=== PATIENT | female | born 1960 | race Caucasian/White ===

== ENCOUNTER → 2024-04-07 | Outpatient (CLI) | payer MEDICARE, MEDICAID, SELFPAY ==
--- NOTE | 2024-04-07 12:18 | XR_ITS ---
Examination: Knee, right , 3 views Technique: Knee AP, lateral, oblique 3 views Date and time of exam: April 07, 2024 1233 hours INDICATIONS: Right knee pain beginning last year FINDINGS: Moderate narrowing medial joint space No fracture or dislocation Moderate osteopenia IMPRESSION: Moderate narrowing medial joint space
[2024-04-07 13:09] LABS: Basophils % (Auto) 1 % (0-2.5); Eosinophils # (Auto) 0.2 Thou/mm3 (0.0-0.5); Eosinophils % (Auto) 4 % (0-10); Hematocrit 33.2 % (36.0-46.0); Hemoglobin 11.5 g/dL (12.0-16.0); Immature Granulocytes % (Auto) 0 % (0-0); Lymphocytes # (Auto) 1.8 Thou/mm3 (1.0-4.8); Lymphocytes % (Auto) 49 % (10-50); Mean Corpuscular HGB Conc 34.6 g/dl (31.0-37.0); Mean Corpuscular Volume 93 fL (80-100); Monocytes # (Auto) 0.3 Thou/mm3 (0.0-0.8); Monocytes % (Auto) 8 % (0-12); Neutrophils # (Auto) 1.4 Thou/mm3 (1.8-7.7); Neutrophils % (Auto) 39 % (37-80); Nucleated Red Blood Cell % 0 /100 WBC (0); Platelet Count 239 Thou/mm3 (140-440); RDW Standard Deviation 41.9 fL (36.4-46.3); Red Blood Count 3.59 Miln/mm3 (4.00-5.20); White Blood Count 3.7 Thou/mm3 (3.6-11.0)
[2024-04-07 13:31] LABS: Alanine Aminotransferase 15 U/L (10-49); Albumin, Serum 4.4 gm/dL (3.4-4.8); Albumin/Globulin Ratio 2.4 (1.2-2.2); Alkaline Phosphatase 32 U/L (46-116); Anion Gap 6 (7-16); Aspartate Amino Transferase 21 U/L (0-34); BUN/Creatinine Ratio 18 Ratio (12-20); Bilirubin,Total 0.4 mg/dL (0.3-1.2); Blood Urea Nitrogen 14 mg/dL (9-23); Calcium 9.5 mg/dL (8.3-10.6); Calcium (Corrected) 9.5 mg/dL (8.5-10.1); Carbon Dioxide 25.9 mMol/L (20.0-31.0); Cardiac Risk Estimate 3.7 RATIO (3.7-5.6); Chloride 112 mMol/L (98-107); Cholesterol 238 mg/dL (132-200); Creatinine (Component) 0.8 mg/dL (0.6-1.3); Globulin 1.8 gm/dL (2.3-3.5); Glucose 102 mg/dL (74-106); HDL Cholesterol 64 mg/dL (40-60); LDL Cholesterol,Calculated 153 mg/dL (0-130); Osmolality,Calculated 287 (275-295); Potassium 4.4 mMol/L (3.4-5.1); Sodium 144 mMol/L (136-145); Total Protein 6.2 gm/dL (5.7-8.2); Triglycerides 107 mg/dL (30-150); eGFR > 60 See Note
[2024-04-07 14:12] LABS: Collection Type, Urine Clean Catch
[2024-04-07 14:39] LABS: Amorphous Crystals,Urine Present (Absent); Bilirubin,Urine Negative (Negative); Blood,Urine 1+ (Negative); Clarity,Urine Turbid (Clear/Hazy); Color,Urine Lt-Yellow (Lt Yel-Yel); Glucose, Urine Negative (Negative); Ketones,Urine Negative (Negative); Leukocyte Esterase,Urine Negative (Negative); Nitrite,Urine Negative (Negative); Protein,Urine Negative (Neg - Trace); RBC,Urine 86 /hpf (0-3); Specific Gravity,Urine 1.015 (1.001-1.035); Squamous Epithelial Cell,Urine 1 /hpf (0-5); Urobilinogen,Urine Negative mg/dL (0.0-1.0); WBC,Urine 2 /hpf (0-5)
[2024-04-07 14:44] LABS: Creatinine MALB Rnd Ur 61 mg/dL (30-125); Microalbumin, Random Urine < 3 mg/L (0-300)
== END | disposition home or self-care (01) ==
LOC: CDIM 12:17 → COPL 12:43
PROVIDERS: PCP Nurse Practitioner Family; Referring Provider Nurse Practitioner Family; Visit Provider Radiology Diagnostic Radiology
DX: M25.861 Other specified joint disorders, right knee (principal); I10 Essential (primary) hypertension; E78.2 Mixed hyperlipidemia; F33.9 Major depressive disorder, recurrent, unspecified; Z79.899 Other long term (current) drug therapy
CPT/HCPCS: 36415; 73562; 80053; 80061; 81001; 82043; 82306; 82570; 83036; 85025

== ENCOUNTER 2024-07-07 18:51 | Emergency (ER) | payer MEDICARE, MEDICAID, SELFPAY ==
[2024-07-07 18:55] VITALS: BP 120/76; PULSE 82; RESP 16; TEMP 36.9; O2SAT 96
[2024-07-07 18:57] VITALS: BMI 23.4
[2024-07-07 19:25] VITALS: PULSE 84; O2SAT 98
--- NOTE | 2024-07-07 19:43 | XR_ITS ---
Examination: CT brain head without contrast. 2-D sagittal coronal reconstructions Date and time of exam:July 07, 2024 1946 hours Comparison 11/01/2020 INDICATIONS: Seizure today with headaches CTDI: vol (mGy):46.5 DLP: (mGycm):914 Technique: Multiple CT axial sections of the brain have been obtained, 5 mm slice thickness. Contrast has not been administered. 2-D sagittal, coronal reconstructions have been obtained Low dose protocols were performed. One or more of the following dose reduction techniques were used; automated exposure control, adjustment of the mA and/or KV according to patient size, use of iterative reconstruction technique. Findings: No significant ventricular enlargement. Intra-axial or extra-axial hemorrhage density is not seen. No mass effect or midline shift Basal cisterns are not remarkable. Fourth ventricle is midline. Cranial vault intact. Impression: Negative for acute hemorrhage, mass effect or midline shift As clinically warranted, consider MRI brain follow-up, pre and postcontrast, seizure protocol
--- NOTE | 2024-07-07 19:43 | XR_ITS ---
Examination: PA chest single view 1 upright PA chest single view Date and time: July 07, 20242102 hours Comparison April 09, 2023 INDICATIONS: Seizure today. FINDINGS: Normal heart size. No aspiration pneumonia The osseous structures are intact with old right-sided rib fractures IMPRESSION: No aspiration pneumonia
--- NOTE | 2024-07-07 19:43 | EKG_ITS ---
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
--- NOTE | 2024-07-07 19:44 | PD.EDSEIZ ---
ED Seizures RME/HPI General Chief Complaint: General Adult/Misc Complain Stated Complaint: DIZZINESS AND WEAKNESS Time Seen by Provider: 07/07/24 19:42 Arrival date/time: 07/07/24 18:51 63F with history of seizures, psych, hyperthyroidism, and asthma presents to ED with evaluation after unwitnessed seizure lasting unknown amount of time today. Patient has been taking her meds. Patient feels almost back to baseline, but does have a headache and some generalized weakness/dizziness. Limitations: no limitations Related Data Home Medications ?Medication ?Instructions ?Recorded ?Confirmed albuterol sulfate 90 mcg/actuation 2 puffs IH Q4H PRN sob #1 inh 05/06/07 11/01/20 aerosol inhaler (Ventolin HFA) carbamazepine 300 mg 300 mg PO BID ##0 04/03/12 11/01/20 capsule,extended release [id number] (Carbatrol) zonisamide 100 mg capsule 200 mg PO HS #0 caps 10/28/13 11/01/20 alendronate 70 mg tablet 70 mg PO QWEEK 08/13/17 11/01/20 atorvastatin 40 mg tablet 40 mg PO HS 11/01/20 11/01/20 buspirone 10 mg tablet 10 mg PO QDAY 11/01/20 11/01/20 omeprazole 40 mg capsule,delayed 40 mg PO AC 11/01/20 11/01/20 release quetiapine 200 mg tablet 200 mg PO QDAY 11/01/20 11/01/20 Previous Rx's ?Medication ?Instructions ?Recorded budesonide 180 mcg/actuation 2 inh inhalation BID #1 ea 07/22/21 breath activated powder inhaler dexamethasone 6 mg tablet 6 mg PO QDAY #7 tabs 07/22/21 montelukast 10 mg tablet 10 mg PO QDAY #30 tabs 07/22/21 ibuprofen 600 mg tablet 600 mg PO Q6H #30 tabs 05/05/23 Allergies Allergy/AdvReac Type Severity Reaction Status Date / Time codeine Allergy Severe Swelling Verified 05/05/23 15:44 of Lip/Tongue/Throat Review of Systems Review of Systems Systems Reviewed: All systems reviewed, normal except as documented Constitutional Constitutional: Reports system reviewed and no additional complaints, except as documented, Reports as per HPI, Denies fever(s), Reports headache(s) and Reports weakness ENT Ears, Nose, Mouth, and Throat: Denies disequilibrium, Reports dizziness and Reports headache(s) Cardiovascular Cardiovascular: Reports system reviewed and no additional complaints, except as documented, Denies chest pain and Denies dyspnea Respiratory Respiratory: Reports system reviewed and no additional complaints, except as documented, Denies cough and Denies dyspnea Gastrointestinal Gastrointestinal: Reports system reviewed and no additional complaints, except as documented, Denies abdominal pain, Denies nausea and Denies vomiting Neurologic Neurologic: Reports system reviewed and no additional complaints, except as documented, Reports as per HPI, Denies confusion, Denies disequilibrium, Reports dizziness, Reports headache(s), Reports seizure-like activity and Reports weakness Psychiatric Psychiatric: Denies confusion Past Medical History Past Medical History NEUROLOGIC: Positive Neurological Disorders, Seizures and Head Trauma CARDIAC: Positive Cardiac Disorders and Heart Murmur; Negative Congestive Heart Failure RESPIRATORY: Positive Asthma; Negative Chronic Obstructive Pulmonary Disease (COPD) GASTROINTESTINAL: Positive Gastrointestinal Disorders, Hiatal Hernia and Gastroesophageal Reflux Disease GENITOURINARY: Positive Genitourinary Disorders and Kidney Stones; Negative Renal Disease MUSCULOSKELETAL: Positive Musculoskeletal Disorders and Osteoporosis ENT: Positive Cataracts, Deafness and Head Trauma ENDOCRINE: Positive Endocrine Disorders and Hyperthyroidism; Negative Diabetes Mellitus Type 1 or Diabetes Mellitus Type 2 HEMATOLOGIC: Negative Blood Disorders or Sickle Cell Disease PSYCHO/SOCIAL: Positive Anxiety OTHER HISTORY: Positive Falls, Chicken Pox, Measles, Mumps and Cancer; Negative Autoimmune Disease, Blood Transfusions or Anesthesia Reactions Family History FAMILY HISTORY: Positive Family Respiratory Disorders, Family Cardiac Disorders, Family Gastrointestinal Problems and Family Cancer; Negative Family Psychiatric Problems, Family Surgery or Family Anesthesia Reaction Surgical History SURGICAL: Positive Abdominal Surgery and Hysterectomy Social History SMOKING STATUS: Never smoker ED Exam General Limitations: Present no limitations General appearance: Present alert and in no apparent distress Head Head exam: Present atraumatic Eye Eye exam: Present normal appearance, PERRL and EOMI ENT ENT exam: Present normal exam, normal oropharynx and mucous membranes moist Neck Neck exam: Present normal inspection, full ROM and trachea midline Chest Chest inspection: Present normal inspection and symmetric chest wall rise Respiratory Respiratory exam: Present normal lung sounds bilaterally Cardiovascular Cardiovascular exam: Present regular rate, normal rhythm and normal heart sounds Abdominal Exam Abdominal exam: Present soft and normal bowel sounds Extremities Exam Extremities exam: Present normal inspection and full ROM Back Exam Back exam: Present normal inspection and full ROM Neurological Exam Neurological exam: Present alert, oriented X3 and CN II-XII intact Psychiatric Psychiatric exam: Present normal affect and normal mood Skin Skin exam: Present warm, dry, intact and normal color Course Quality Measures none Orders Category Date Time Status EKG (ED ONLY) *Do not use* NOW Care 07/07/24 19:[address] head/brain wo con Stat Exams 07/07/24 19:43 Completed EKG (ED Only) Stat Exams 07/07/24 19:43 Draft XR chest 1V portable Stat Exams 07/07/24 19:43 Completed CBC Stat Lab 07/07/24 20:13 Completed Comprehensive Metabolic Panel Stat Lab 07/07/24 20:13 Completed Drug Screen,Urine Stat Lab 07/07/24 20:36 Completed Free T4 (Free Thyroxine) Stat Lab 07/07/24 20:13 Completed Lactate (Lactic Acid) Stat Lab 07/07/24 20:13 Completed Magnesium Stat Lab 07/07/24 20:13 Completed TSH [Thyroid Stimulating Hormone] Stat Lab 07/07/24 20:13 Completed Troponin I Stat Lab 07/07/24 20:13 Completed Urinalysis Stat Lab 07/07/24 20:36 Completed Vital Signs Vital signs: Vital Signs Temperature 98.5 F 07/07/24 18:55 Pulse Rate 82 07/07/24 18:55 Respiratory Rate 16 07/07/24 18:55 Blood Pressure 120/76 07/07/24 18:55 Pulse Oximetry (%) 96 07/07/24 18:55 O2 at 96% on RA and WNLs Seizure MDM Narrative MDM Narrative:: 63F with history of seizures, psych, hyperthyroidism, and asthma presents to ED with evaluation after unwitnessed seizure lasting unknown amount of time today. Patient has been taking her meds. Patient feels almost back to baseline, but does have a headache and some generalized weakness/dizziness. Physical exam reveals normal pupil response and EOM. CNII-XII grossly intact. Normal WOB. Gait normal. Neck ROM intact. Patient is afebrile, calm, and alert. CT unremarkable. CXR normal. No leukocytosis. CMP unremarkable. Alcohol/tox screen neg. Lactate normal. EKG is NSR. Trop normal. UA clean. TSH/T4 mildly abnormal. Patient data External records reviewed:: [facility] previous records Clinical information provided by:: patient Social determinants that could affect healthcare access:: mental health Patient has the following chronic illnesses:: seizures, psych, hyperthyroidism, and asthma How is presenting disease/condition affected by chronic disease/condition?: exacerbated by Evaluation data The following diagnostics were reviewed and interpreted by me:: lab results, radiology exam(s) and EKG tracing(s) Lab and/or radiology exams considered but not ordered:: ordered Interpretation Summary: above Medications / Prescriptions Medications or Prescriptions considered but not ordered:: not ordered Medication administrations:: n/a Consultations Consultation(s) initiated? (list below): No Diagnosis Seizure Differential Diagnosis: intractable seizure disorder, febrile convulsion, focal seizure, generalized seizure, new onset seizure, epileptic seizure and status epilepticus Most likely diagnosis given after review of the tests above:: seizure Admission Indicated Admission indicated?: not indicated Admission Request Was there a request for admission?: No Disposition Plan Disposition Plan: Discharge Discharge Attestation Discharge Attestation: The patient and all family members were given an opportunity to ask questions and understood the discharge instructions. Discharge instructions specifically effects, indications for sooner follow up or return to the emergency department, and the expected course of current diagnosis. Patient condition: Stable Discharge Plan Plan Patient Disposition: HOME (Self Care) Discharge Disposition comment: Stable Prescriptions/Referrals Prescriptions/Med Rec: No Action albuterol sulfate [Ventolin HFA] 200 PUFF/INH HFA aerosol inhaler 2 puffs IH Q4H PRN (Reason: sob) Qty: 1 Patient Comments: as needed. carbamazepine [Carbatrol] 300 MG capsule, ER multiphase 12 hr 300 mg PO BID Qty: 0 zonisamide 100 MG capsule 200 mg PO HS Qty: 0 alendronate 70 mg Tablet 70 mg PO QWEEK Patient Comments: pt takes on saturdays atorvastatin 40 mg tablet 40 mg PO HS Patient Comments: TAKE ONE TABLET BY MOUTH EVERY DAY FOR CHOLESTEROL quetiapine 200 mg tablet 200 mg PO QDAY Patient Comments: TAKE 1 TABLET BY MOUTH EVERY DAY buspirone 10 mg tablet 10 mg PO QDAY Patient Comments: TAKE 1 TABLET BY MOUTH THREE TIMES A DAY omeprazole 40 mg capsule,delayed release(DR/EC) 40 mg PO AC Patient Comments: TAKE 1 CAPSULE BY MOUTH EVERY DAY BEFORE A MEAL budesonide 180 mcg/actuation aerosol powdr breath activated 2 inh inhalation BID Qty: 1 0RF montelukast 10 mg tablet 10 mg PO QDAY Qty: 30 0RF dexamethasone 6 mg tablet 6 mg PO QDAY Qty: 7 0RF ibuprofen 600 mg tablet 600 mg PO Q6H Qty: 30 0RF Referrals: No Primary/Family,Physician [Primary Care Provider] - In 1 week Problem List Clinical Impression: Seizure Patient/Caregiver Discharge Instructions Education Materials: ED Seizure, Recurrent (Adult) Additional Instructions: Please follow-up with PCP within 24-48 hours and return immediately if symptoms worsen. Print Language: Czech Stand Alone Forms: Patient Portal Info Letter PA/DIRECTOR OF VOCATIONAL TRAINING Supervising Physician PA/JORGE A Supervising Physician: Dr. Paez
[2024-07-07 20:26] LABS: Lactate (Lactic Acid) 1.5 mMol/L (0.4-2.0)
[2024-07-07 20:29] LABS: Basophils % (Auto) 0 % (0-2.5); Eosinophils # (Auto) 0.2 Thou/mm3 (0.0-0.5); Eosinophils % (Auto) 3 % (0-10); Hematocrit 34.9 % (36.0-46.0); Hemoglobin 12.2 g/dL (12.0-16.0); Immature Granulocytes % (Auto) 0 % (0-0); Immature Granulocytes Auto 0.01 Thou/mm3 (0.00-0.00); Lymphocytes % (Auto) 41 % (10-50); Mean Corpuscular Hemoglobin 32.7 pg (25.0-35.0); Mean Corpuscular Volume 94 fL (80-100); Monocytes # (Auto) 0.4 Thou/mm3 (0.0-0.8); Monocytes % (Auto) 7 % (0-12); Neutrophils # (Auto) 2.3 Thou/mm3 (1.8-7.7); Neutrophils % (Auto) 48 % (37-80); Nucleated Red Blood Cell % 0 /100 WBC (0); Platelet Count 247 Thou/mm3 (140-440); RDW Standard Deviation 42.1 fL (36.4-46.3); Red Blood Count 3.73 Miln/mm3 (4.00-5.20); White Blood Count 4.8 Thou/mm3 (3.6-11.0)
[2024-07-07 20:44] LABS: Collection Type, Urine Clean Catch; RBC,Urine 0 /hpf (0-3)
[2024-07-07 20:51] LABS: Alanine Aminotransferase 18 U/L (10-49); Albumin, Serum 4.8 gm/dL (3.4-4.8); Albumin/Globulin Ratio 2.1 (1.2-2.2); Alkaline Phosphatase 33 U/L (46-116); Anion Gap 7 (7-16); Aspartate Amino Transferase 23 U/L (0-34); BUN/Creatinine Ratio 16 Ratio (12-20); Bilirubin,Total 0.2 mg/dL (0.3-1.2); Blood Urea Nitrogen 13 mg/dL (9-23); Calcium 9.3 mg/dL (8.3-10.6); Calcium (Corrected) 9.3 mg/dL (8.5-10.1); Carbon Dioxide 26.5 mMol/L (20.0-31.0); Chloride 109 mMol/L (98-107); Creatinine (Component) 0.8 mg/dL (0.6-1.3); Estimated Creatinine Clearance 52.4 mL/min (>60); Globulin 2.3 gm/dL (2.3-3.5); Glucose 108 mg/dL (74-106); Osmolality,Calculated 284 (275-295); Potassium 4.2 mMol/L (3.4-5.1); Sodium 142 mMol/L (136-145); Thyroid Stimulating Hormone 6.65 uIU/mL (0.55-4.78); Total Protein 7.1 gm/dL (5.7-8.2); Troponin I < 0.002 ng/mL (0.0-0.045); eGFR > 60 See Note
[2024-07-07 21:01] LABS: Bacteria,Urine Rare; Bilirubin,Urine Negative (Negative); Blood,Urine Negative (Negative); Clarity,Urine Clear (Clear/Hazy); Color,Urine Lt-Yellow (Lt Yel-Yel); Glucose, Urine Negative (Negative); Ketones,Urine Negative (Negative); Leukocyte Esterase,Urine Positive (Negative); Nitrite,Urine Negative (Negative); Protein,Urine Negative (Neg - Trace); Specific Gravity,Urine 1.014 (1.001-1.035); Squamous Epithelial Cell,Urine < 1 /hpf (0-5); Urobilinogen,Urine Negative mg/dL (0.0-1.0); WBC,Urine 5 /hpf (0-5)
[2024-07-07 21:05] LABS: Amphetamine/Methamp Scrn,U Negative (Negative); Barbiturate Screen,Urine Negative (Negative); Benzodiazepines Screen,Urine Negative (Negative); Benzoylecgonine Screen, Ur Negative (Negative); Fentanyl Screen,Urine Negative (Negative); Opiate Screen,Urine Negative (Negative); THC Screen,Urine Negative (Negative)
[2024-07-07 21:37] VITALS: RESP 18
== END 2024-07-07 21:38 | disposition home or self-care (01) ==
PROVIDERS: Physician Assistant; Emergency Provider Emergency Medicine
DX: R56.9 Unspecified convulsions (principal); J45.909 Unspecified asthma, uncomplicated; E05.90 Thyrotoxicosis, unspecified without thyrotoxic crisis or storm; R51.9 Headache, unspecified
CPT/HCPCS: 36415; 70450; 71045; 80053; 80307; 81001; 83605; 83735; 84439; 84443; 84484; 85025; 93005; 99284

== ENCOUNTER 2024-09-16 15:20 | Emergency (ER) | payer MEDICARE, SELFPAY ==
--- NOTE | 2024-09-16 15:24 | PD.EDSOB ---
ED SOB =RME/HPI General Chief Complaint: Shortness of Breath/Dyspnea Stated Complaint: SOB Time Seen by Provider: 09/16/24 15:23 Arrival date/time: 09/16/24 15:20 Limitations: no limitations RME / HPI RME / HPI Narrative: DR. SMART MAIN ED EVALUATION: 64-year-old female with past medical history of asthma, heart murmur, seizure disorder, and anxiety presents to the Emergency Department BIBA with complaint of shortness of breath. Patient received 2 Albuterol treatments en route by EMS. Reports tightness in chest when breathing and associated cough. No hypoxia, oxygen saturation is 98% on room air. Denies smoking, alcohol, or drug use. No recent travel. Related Data Home Medications ?Medication ?Instructions ?Recorded ?Confirmed albuterol sulfate 90 mcg/actuation 2 puffs IH Q4H PRN sob #1 inh 05/06/07 11/01/20 aerosol inhaler (Ventolin HFA) carbamazepine 300 mg 300 mg PO BID ##0 04/03/12 11/01/20 capsule,extended release [id number] (Carbatrol) zonisamide 100 mg capsule 200 mg PO HS #0 caps 10/28/13 11/01/20 alendronate 70 mg tablet 70 mg PO QWEEK 08/13/17 11/01/20 atorvastatin 40 mg tablet 40 mg PO HS 11/01/20 11/01/20 buspirone 10 mg tablet 10 mg PO QDAY 11/01/20 11/01/20 omeprazole 40 mg capsule,delayed 40 mg PO AC 11/01/20 11/01/20 release quetiapine 200 mg tablet 200 mg PO QDAY 11/01/20 11/01/20 Previous Rx's ?Medication ?Instructions ?Recorded budesonide 180 mcg/actuation 2 inh inhalation BID #1 ea 07/22/21 breath activated powder inhaler dexamethasone 6 mg tablet 6 mg PO QDAY #7 tabs 07/22/21 montelukast 10 mg tablet 10 mg PO QDAY #30 tabs 07/22/21 ibuprofen 600 mg tablet 600 mg PO Q6H #30 tabs 05/05/23 Allergies Allergy/AdvReac Type Severity Reaction Status Date / Time codeine Allergy Severe Swelling Verified 05/05/23 15:44 of Lip/Tongue/Throat Review of Systems Review of Systems Systems Reviewed: All systems reviewed, normal except as documented Past Medical History Past Medical History NEUROLOGIC: Positive Neurological Disorders, Seizures and Head Trauma CARDIAC: Positive Cardiac Disorders and Heart Murmur RESPIRATORY: Positive Asthma; Negative Chronic Obstructive Pulmonary Disease (COPD) GASTROINTESTINAL: Positive Gastrointestinal Disorders, Hiatal Hernia and Gastroesophageal Reflux Disease GENITOURINARY: Positive Genitourinary Disorders and Kidney Stones MUSCULOSKELETAL: Positive Musculoskeletal Disorders and Osteoporosis ENT: Positive Cataracts, Deafness and Head Trauma ENDOCRINE: Positive Endocrine Disorders and Hyperthyroidism PSYCHO/SOCIAL: Positive Anxiety OTHER HISTORY: Positive Falls, Chicken Pox, Measles, Mumps and Cancer Family History FAMILY HISTORY: Positive Family Respiratory Disorders, Family Cardiac Disorders, Family Gastrointestinal Problems and Family Cancer Surgical History SURGICAL: Positive Abdominal Surgery and Hysterectomy Social History SMOKING STATUS: Never smoker SUBSTANCE USE: does not use ALCOHOL: Never ED Exam General Limitations: Present no limitations General appearance: Present alert Head Head exam: Present atraumatic, normocephalic and normal inspection Eye Eye exam: Present normal appearance, PERRL and EOMI ENT ENT exam: Present normal exam, normal oropharynx and mucous membranes moist Neck Neck exam: Present normal inspection, full ROM and trachea midline Chest Chest inspection: Present normal inspection and symmetric chest wall rise Respiratory Respiratory exam: Present respiratory distress and other (labored, tachypnea, diminished breath sounds; no rhonchi); Absent wheezes Cardiovascular Cardiovascular exam: Present regular rate, normal rhythm and normal heart sounds Abdominal Exam Abdominal exam: Present soft and normal bowel sounds Extremities Exam Extremities exam: Present normal inspection and full ROM Back Exam Back exam: Present normal inspection and full ROM Neurological Exam Neurological exam: Present alert, oriented X3 and CN II-XII intact Psychiatric Psychiatric exam: Present normal affect and normal mood Skin Skin exam: Present warm, dry, intact and normal color Course Quality Measures none Orders Category Date Time Status EKG (ED ONLY) *Do not use* NOW Care 09/16/24 15:26 Completed CXR1 [XR chest 1V] Stat Exams 09/16/24 17:48 Ordered EKG (ED Only) Stat Exams 09/16/24 15:26 Draft EKG (ED Only) Urgent Exams 09/16/24 15:26 Ordered BNP [B-Type Natriuretic Peptide] Stat Lab 09/16/24 17:48 Ordered CBC Stat Lab 09/16/24 17:48 Ordered CMP [Comprehensive Metabolic Panel] Stat Lab 09/16/24 17:48 Ordered Troponin I Stat Lab 09/16/24 17:48 Ordered Levothyroxine Sodium [Synthroid] Med 09/16/24 17:50 Discontinued 25 mcg PO X1 ONE MethylPREDNISolone.* [SoluMEDROL Inj] Med 09/16/24 17:49 Discontinued 125 mg IVP X1 ONE cefTRIAXone/D5w 1gm IV premix [Rocephin/D5w 1gm IV Med 09/16/24 17:52 Discontinued premix] 1 gm in 50 ml IV NOW Vital Signs Vital signs: Vital Signs Temperature 98.2 F 09/16/24 15:30 Pulse Rate 101 H 09/16/24 15:30 Respiratory Rate 19 09/16/24 15:30 Blood Pressure 106/92 H 09/16/24 15:30 Pulse Oximetry (%) 100 09/16/24 15:30 Oxygen Delivery Method Oxy Mask 09/16/24 15:30 Oxygen Flow Rate 6 09/16/24 15:30 Shortness of Breath / Dyspnea MDM Narrative MDM Narrative:: IRose am scribing for and in the presence of Dr. Smart. Patient is a 64-year-old female with medical history notable for asthma that is in Emergency Department concerns for shortness of breath. Vital signs and exam as above. Concern for asthma exacerbation, ACS, CHF exacerbation pneumonia among others. Ordered labs EKG chest x-ray also ordered breathing treatment and steroids. EKG without evidence of arrhythmia or ischemia. At this time a shift is in a transition care over to the oncoming provider. Patient is pending results of her workup and safe dispo. Patient data External records reviewed:: [facility] previous records and EMS form Clinical information provided by:: patient and EMS Social determinants that could affect healthcare access:: none Patient has the following chronic illnesses:: asthma, heart murmur, seizure disorder, and anxiety How is presenting disease/condition affected by chronic disease/condition?: caused by Evaluation data The following diagnostics were reviewed and interpreted by me:: lab results Lab and/or radiology exams considered but not ordered:: none Interpretation Summary: My interpretation: EKG performed at 1526 hours, sinus rhythm, rate 101, frequent PVCs, non specific ST-T wave changes, no cardiac alert Medications / Prescriptions Medications or Prescriptions considered but not ordered:: none Medication administrations:: Medication Administration History Discontinued Medications Ceftriaxone Sodium/Dextrose (Rocephin/D5w 1gm Iv Premix) 1 gm in 50 mls @ 100 mls/hr IV NOW ONE Stop: 09/16/24 18:21 Levothyroxine Sodium (Levothyroxine Sodium 25 Mcg Tablet) 25 mcg PO X1 ONE Stop: 09/16/24 17:51 Methylprednisolone Sodium Succinate (Methylprednisolone Sod Succ 62.5 Mg/Ml 2ml Vial) 125 mg IVP X1 ONE Stop: 09/16/24 17:50 see above if any Consultations Consultation(s) initiated? (list below): No Diagnosis Shortness of Breath Differential Diagnosis: other (asthma exacerbation, bronchitis, and anxiety-induced hyperventilation) Most likely diagnosis given after review of the tests above:: Reactive airway disease Admission Indicated Admission indicated?: not indicated Explain why admission is indicated or not indicated:: Patient will be signed out Admission Request Was there a request for admission?: No Admission Attestation Admission request attestation: Signed out Disposition Plan Disposition Plan: other (specify) (Signed out) Discharge Plan Prescriptions/Referrals Prescriptions/Med Rec: No Action albuterol sulfate [Ventolin HFA] 200 PUFF/INH HFA aerosol inhaler 2 puffs IH Q4H PRN (Reason: sob) Qty: 1 Patient Comments: as needed. carbamazepine [Carbatrol] 300 MG capsule, ER multiphase 12 hr 300 mg PO BID Qty: 0 zonisamide 100 MG capsule 200 mg PO HS Qty: 0 alendronate 70 mg Tablet 70 mg PO QWEEK Patient Comments: pt takes on saturdays atorvastatin 40 mg tablet 40 mg PO HS Patient Comments: TAKE ONE TABLET BY MOUTH EVERY DAY FOR CHOLESTEROL quetiapine 200 mg tablet 200 mg PO QDAY Patient Comments: TAKE 1 TABLET BY MOUTH EVERY DAY buspirone 10 mg tablet 10 mg PO QDAY Patient Comments: TAKE 1 TABLET BY MOUTH THREE TIMES A DAY omeprazole 40 mg capsule,delayed release(DR/EC) 40 mg PO AC Patient Comments: TAKE 1 CAPSULE BY MOUTH EVERY DAY BEFORE A MEAL budesonide 180 mcg/actuation aerosol powdr breath activated 2 inh inhalation BID Qty: 1 0RF montelukast 10 mg tablet 10 mg PO QDAY Qty: 30 0RF dexamethasone 6 mg tablet 6 mg PO QDAY Qty: 7 0RF ibuprofen 600 mg tablet 600 mg PO Q6H Qty: 30 0RF Problem List Clinical Impression: Shortness of breath Patient/Caregiver Discharge Instructions Print Language: Setswana
--- NOTE | 2024-09-16 15:26 | EKG_ITS ---
[facility] Test Date: 2024-09-16 Pat Name: PURNIMA SPRINGER Department: Room: - Gender: Female Wood Handler: : 1960 Requested By: Sonja Dale Order Number: [id number] Reading MD: Sonja Dale Measurements Intervals [place] Rate: 101 P: 55 [place]: 164 QRS: -4 QRSD: 94 T: 12 QT: 356 QTc: 463 Interpretive Statements SINUS TACHYCARDIA WITH FREQUENT VENTRICULAR PREMATURE COMPLEXES LOW QRS VOLTAGE IN PRECORDIAL LEADS [QRS DEFLECTION < 1.0 mV IN CHEST LEADS] ABNORMAL RHYTHM ECG Compared to ECG 07/07/2024 19:45:04 Ventricular premature complex(es) now present Sinus rhythm no longer present Sinus arrhythmia no longer present Myocardial infarct finding no longer present /store/S0/[id number]/[id number]
[2024-09-16 15:28] VITALS: PULSE 100; RESP 19; O2SAT 98; BMI 23.2
[2024-09-16 15:30] VITALS: BP 106/92; PULSE 101; RESP 19; TEMP 36.8; O2SAT 100
[2024-09-16 17:21] VITALS: BP 116/79; PULSE 94; RESP 15; TEMP 36.9; O2SAT 95
--- NOTE | 2024-09-16 17:48 | XR_ITS ---
Examination: AP chest single view Technique one AP portable upright chest single view Date and time: September 16, 2024, 1757 hours COMPARISON: July 07, 2024 INDICATIONS: Shortness of breath chest pain today. FINDINGS: Normal heart size. Lungs are clear. Prominent osteopenia with moderate thoracic dextroscoliosis IMPRESSION: No active disease
[2024-09-16 17:50] VITALS: BP 117/84; PULSE 93; RESP 18; TEMP 36.8; O2SAT 97
[2024-09-16 18:13] LABS: Basophils # (Auto) 0.0 Thou/mm3 (0.0-0.2); Basophils % (Auto) 1 % (0-2.5); Eosinophils # (Auto) 0.2 Thou/mm3 (0.0-0.5); Eosinophils % (Auto) 3 % (0-10); Hematocrit 36.0 % (36.0-46.0); Hemoglobin 12.2 g/dL (12.0-16.0); Immature Granulocytes Auto 0.01 Thou/mm3 (0.00-0.00); Lymphocytes # (Auto) 2.3 Thou/mm3 (1.0-4.8); Lymphocytes % (Auto) 41 % (10-50); Mean Corpuscular HGB Conc 33.9 g/dl (31.0-37.0); Mean Corpuscular Hemoglobin 32.0 pg (25.0-35.0); Mean Corpuscular Volume 95 fL (80-100); Monocytes # (Auto) 0.4 Thou/mm3 (0.0-0.8); Monocytes % (Auto) 7 % (0-12); Neutrophils # (Auto) 2.7 Thou/mm3 (1.8-7.7); Neutrophils % (Auto) 48 % (37-80); Nucleated Red Blood Cell # 0.00 Thou/mm3 (0.00-0.00); Nucleated Red Blood Cell % 0 /100 WBC (0); Platelet Count 233 Thou/mm3 (140-440); RDW Standard Deviation 43.2 fL (36.4-46.3); Red Blood Count 3.81 Miln/mm3 (4.00-5.20); White Blood Count 5.6 Thou/mm3 (3.6-11.0)
--- NOTE | 2024-09-16 18:18 | PD.EDADDENDU ---
Emergency Room Addendum <Lashay Dias - Last Filed: 09/16/24 18:44> Addendum Narrative: 1800: Care assumed from Dr. Smart, the previous shift emergency physician. Past medical, surgical, social and family history reviewed. Vitals and home medications reviewed. Results and treatment plan discussed. I will assume the care of the patient at this time and will follow the patient, pending labs. Please refer to the emergency department record for history and examination from initial visit. <Corby Wise DO - Last Filed: 09/16/24 18:45> Addendum Narrative: 1800: Care assumed from Dr. Smart, the previous shift emergency physician. Past medical, surgical, social and family history reviewed. Vitals and home medications reviewed. Results and treatment plan discussed. I will assume the care of the patient at this time and will follow the patient, pending labs. Please refer to the emergency department record for history and examination from initial visit. Patient was in fact signed out to me. I went and examined the patient. All vital signs are stable. She is not tachypneic or dyspneic. I reviewed all labs and chest x-ray. Troponin was not elevated. EKG showed some PVCs but no ST segment changes. Patient felt much improved after receiving albuterol and Atrovent breathing treatments by the paramedics. She apparently was wheezing and round. She had received Solu-Medrol here in the emergency room. Patient is stable for discharge to take prednisone and albuterol metered-dose inhaler to be taken as prescribed. Follow-up with her doctor. Return to ER as needed or if condition worsens.
[2024-09-16] MEDS: MethylPREDNISolone SOD SUCC 62.5 MG/ML 2ML VIAL 125 MG IVP (18:26)
[2024-09-16 18:27] LABS: Alanine Aminotransferase 14 U/L (10-49); Albumin, Serum 4.5 gm/dL (3.4-4.8); Albumin/Globulin Ratio 2.0 (1.2-2.2); Alkaline Phosphatase 38 U/L (46-116); Anion Gap 13 (7-16); Aspartate Amino Transferase 21 U/L (0-34); BUN/Creatinine Ratio 17 Ratio (12-20); Bilirubin,Total 0.2 mg/dL (0.3-1.2); Blood Urea Nitrogen 12 mg/dL (9-23); Calcium 9.2 mg/dL (8.3-10.6); Calcium (Corrected) 9.2 mg/dL (8.5-10.1); Carbon Dioxide 24.3 mMol/L (20.0-31.0); Chloride 110 mMol/L (98-107); Creatinine (Component) 0.7 mg/dL (0.6-1.3); Estimated Creatinine Clearance 59.1 mL/min (>60); Globulin 2.3 gm/dL (2.3-3.5); Glucose 109 mg/dL (74-106); Osmolality,Calculated 293 (275-295); Potassium 3.5 mMol/L (3.4-5.1); Sodium 147 mMol/L (136-145); Total Protein 6.8 gm/dL (5.7-8.2); Troponin I < 0.002 ng/mL (0.0-0.045); eGFR > 60 See Note
[2024-09-16 18:34] LABS: B-Type Natriuretic Peptide 154 pg/mL (0-100)
== END 2024-09-16 19:23 | disposition home or self-care (01) ==
PROVIDERS: Emergency Medicine; Emergency Provider Emergency Medicine; PCP Nurse Practitioner Family
DX: I49.3 Ventricular premature depolarization (principal); R06.02 Shortness of breath; R07.9 Chest pain, unspecified
CPT/HCPCS: 36415; 71045; 80053; 83880; 84484; 85025; 93005; 96374; 99283; J2919

== ENCOUNTER 2024-12-08 14:11 | Emergency (ER) | payer OTHER, SELFPAY ==
[2024-12-08 14:12] VITALS: BMI 23.2
[2024-12-08 14:24] VITALS: BP 112/73; PULSE 75; RESP 18; TEMP 36.8; O2SAT 99
--- NOTE | 2024-12-08 15:13 | XR_ITS ---
EXAMINATION: CTA carotid brain angiograms with intravenous contrast 3D sagittal coronal reconstructions 3D reconstructions Date and time: December 08, 2024, 1530 hours INDICATIONS: Stroke alert today CTDI, 17.3 DLP: 440 TECHNIQUE AND FINDINGS: 2.0 mm slice thickness axial images obtained brain head and carotids post intravenous administration 75 cc Isovue-370 2D sagittal coronal reconstructions 3D reconstructions including 3D post processed angiographic imaging No significant common carotid carotid bifurcation or internal carotid artery stenoses Dominant right vertebral artery, no critical stenoses Intracranial vertebral arteries basilar artery and posterior cerebral branches fill with no large vessel occlusions Middle cerebral anterior cerebral arteries including M1 segments middle cerebral arteries fill with no large vessel occlusions IMPRESSION: No significant neck arterial stenoses No cerebral large vessel arterial occlusions or thrombus
--- NOTE | 2024-12-08 15:13 | XR_ITS ---
EXAMINATION: AP chest single view TECHNIQUE: AP portable upright chest single view Date and time: December 08, 2024, 1539 hours, comparison September 16, 2024 INDICATIONS: Stroke alert today FINDINGS: Mild prominence of ventricles Accentuation of bronchovascular markings. No aspiration pneumonia. Prominent osteopenia IMPRESSION: Bronchitis pattern
--- NOTE | 2024-12-08 15:13 | EKG_ITS ---
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
--- NOTE | 2024-12-08 15:13 | XR_ITS ---
Examination: CT brain head without contrast. 2-D sagittal coronal reconstructions Date and time of exam: 12/08/2024, 3:18 p.m. COMPARISON: 07/07/2024 INDICATION: Headache evaluate for stroke CTDI: vol (mGy): 48.2 DLP: (mGycm): 949 Technique: Multiple CT axial sections of the brain have been obtained, 5 mm slice thickness. Contrast has not been administered. 2-D sagittal, coronal reconstructions have been obtained Low dose protocols were performed. One or more of the following dose reduction techniques were used; automated exposure control, adjustment of the mA and/or KV according to patient size, use of iterative reconstruction technique. Findings: No significant ventricular enlargement. Intra-axial or extra-axial hemorrhage density is not seen. No mass effect or midline shift Basal cisterns are not remarkable. Fourth ventricle is midline. Cranial vault intact. Impression: Negative for acute hemorrhage, mass effect or midline shift
--- NOTE | 2024-12-08 15:22 | PD.EDDIZZY ---
ED Dizzyness RME/HPI General Chief Complaint: Dizziness Stated Complaint: DIZZINESS X COUPLE HOURS S/P FLU SHOT YESTER Time Seen by Provider: 12/08/24 15:02 Arrival date/time: 12/08/24 14:11 Limitations: no limitations RME / HPI RME / HPI Narrative: 64 year old female with history of seizures, asthma, hyperlipidemia, GERD, presents to the ED brought in by caregiver for evaluation of dizziness today. Per caregiver, at about 12:30 noon today the patient had complained of a headache and dizziness. No falls reported. Denies unilateral weakness, fevers, cough, shortness of breath, abdominal pain, n/v/d, or urinary symptoms. Caregiver adds the patient did receive the flu vaccine yesterday. Related Data Home Medications ?Medication ?Instructions ?Recorded ?Confirmed albuterol sulfate 90 mcg/actuation 2 puffs IH Q4H PRN sob #1 inh 05/06/07 11/01/20 aerosol inhaler (Ventolin HFA) carbamazepine 300 mg 300 mg PO BID ##0 04/03/12 11/01/20 capsule,extended release [id number] (Carbatrol) zonisamide 100 mg capsule 200 mg PO HS #0 caps 10/28/13 11/01/20 alendronate 70 mg tablet 70 mg PO QWEEK 08/13/17 11/01/20 atorvastatin 40 mg tablet 40 mg PO HS 11/01/20 11/01/20 buspirone 10 mg tablet 10 mg PO QDAY 11/01/20 11/01/20 omeprazole 40 mg capsule,delayed 40 mg PO AC 11/01/20 11/01/20 release quetiapine 200 mg tablet 200 mg PO QDAY 11/01/20 11/01/20 Previous Rx's ?Medication ?Instructions ?Recorded budesonide 180 mcg/actuation 2 inh inhalation BID #1 ea 07/22/21 breath activated powder inhaler dexamethasone 6 mg tablet 6 mg PO QDAY #7 tabs 07/22/21 montelukast 10 mg tablet 10 mg PO QDAY #30 tabs 07/22/21 ibuprofen 600 mg tablet 600 mg PO Q6H #30 tabs 05/05/23 albuterol sulfate 90 mcg/actuation 2 puff inhalation Q4H PRN 09/16/24 aerosol inhaler shortness of breath or wheezing #6.7 grams Allergies Allergy/AdvReac Type Severity Reaction Status Date / Time codeine Allergy Severe Swelling Verified 12/08/24 14:14 of Lip/Tongue/Throat Review of Systems Review of Systems Systems Reviewed: All systems reviewed, normal except as documented Past Medical History Past Medical History NEUROLOGIC: Positive Neurological Disorders, Seizures and Head Trauma CARDIAC: Positive Cardiac Disorders and Heart Murmur RESPIRATORY: Positive Asthma GASTROINTESTINAL: Positive Gastrointestinal Disorders, Hiatal Hernia and Gastroesophageal Reflux Disease GENITOURINARY: Positive Genitourinary Disorders and Kidney Stones MUSCULOSKELETAL: Positive Musculoskeletal Disorders and Osteoporosis ENT: Positive Cataracts, Deafness and Head Trauma ENDOCRINE: Positive Endocrine Disorders and Hyperthyroidism PSYCHO/SOCIAL: Positive Anxiety OTHER HISTORY: Positive Falls, Chicken Pox, Measles, Mumps and Cancer Family History FAMILY HISTORY: Positive Family Respiratory Disorders, Family Cardiac Disorders, Family Gastrointestinal Problems and Family Cancer Surgical History SURGICAL: Positive Abdominal Surgery and Hysterectomy Social History SMOKING STATUS: Never smoker SUBSTANCE USE: does not use ED Exam General Limitations: Present no limitations General appearance: Present alert and in no apparent distress Head Head exam: Present atraumatic, normocephalic and normal inspection Eye Eye exam: Present normal appearance, PERRL and EOMI ENT ENT exam: Present normal exam, normal oropharynx and mucous membranes moist Neck Neck exam: Present normal inspection, full ROM and trachea midline Chest Chest inspection: Present normal inspection and symmetric chest wall rise Respiratory Respiratory exam: Present normal lung sounds bilaterally Cardiovascular Cardiovascular exam: Present regular rate, normal rhythm and normal heart sounds Abdominal Exam Abdominal exam: Present soft and normal bowel sounds Extremities Exam Extremities exam: Present normal inspection and full ROM Back Exam Back exam: Present normal inspection and full ROM Neurological Exam Neurological exam: Present alert, oriented X3 and CN II-XII intact Psychiatric Psychiatric exam: Present normal affect and normal mood Skin Skin exam: Present warm, dry, intact and normal color Course Course Course Narrative: Quality Measures Suspected type of Stroke: Non Acute Last known well (date): 12/08/24 Last known well (time): 12:30 Tenecteplase given: Reason(s) TPA not given: Stroke severity too mild (non-disabling) not given stroke Orders Category Date Time Status Bedside Blood Glucose NOW Care 12/08/24 15:13 Active 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 Care 12/08/24 15:13 Active Continuous Pulse Oximetry NOW Care 12/08/24 15:13 Completed EKG (ED ONLY) *Do not use* NOW Care 12/08/24 15:13 Completed In and Out Catheter NEEDED Care 12/08/24 15:13 Active Insert IV NOW Care 12/08/24 15:13 Active NIH Stroke Scale now Care 12/08/24 15:13 Active NPO NOW Care 12/08/24 15:13 Active Nurse Swallow Screen x1 Care 12/08/24 15:13 Active Consult to Neurology / Tele-Neurology Routine Cons 12/08/24 15:[address] angio stroke protocol Stat Exams 12/08/24 15:[address] stroke protocol Stat Exams 12/08/24 15:13 Completed EKG (ED Only) Stat Exams 12/08/24 15:13 Draft XR chest 1V portable Stat Exams 12/08/24 15:13 Completed CBC Stat Lab 12/08/24 15:07 Completed Comprehensive Metabolic Panel Stat Lab 12/08/24 15:07 Completed Drug Screen,Urine Stat Lab 12/08/24 15:13 Ordered Magnesium Stat Lab 12/08/24 15:07 Completed Partial Thromboplastin Time Stat Lab 12/08/24 15:07 Completed Prothrombin Time with INR Stat Lab 12/08/24 15:07 Completed Troponin I Stat Lab 12/08/24 15:07 Completed Urinalysis, C/S if Indicated Stat Lab 12/08/24 15:13 Ordered Oxygen Delivery NOW RT 12/08/24 15:13 Active Vital Signs Vital signs: Vital Signs Temperature 98.3 F 12/08/24 14:24 Pulse Rate 75 12/08/24 14:24 Respiratory Rate 18 12/08/24 14:24 Blood Pressure 112/73 12/08/24 14:24 Pulse Oximetry (%) 99 12/08/24 14:24 Oxygen Delivery Method Room Air 12/08/24 14:24 Pulse ox is 99% on room air which is adequate. Dizziness MDM Narrative MDM Narrative:: Pt presents with stroke like sx. Chest x-ray to evaluate for evidence of CHF. EKG/troponin to evaluate for evidence of arrhythmia/ACS/AMI. Labwork (CBC, CMP) to evaluate for evidence of severe anemia, electrolyte abnl including hypokalemia, hyperkalemia, hypernatremia, hyponatremia, hyperglycemia, hypoglycemia, etc CT brain to evaluate for evidence of mass/CVA/TIA. CT brain angio to evaluate for evidence of LVO) MRI brain to evaluate for evidence of mass/CVA/TIA- Neurology Consult. - Last Known Well Time: 12/08/2024 12:30:00 - NIHSS Completed pt's arrival and score is: 0 - Evidence based thrombolytic inclusion and exclusion criteria was reviewed with Neurologist care consultant and pt is not a thrombolytic candidate: Symptoms resolved Independent Historian: Pt's family EXTERNAL RECORD REVIEW: I reviewed and interpreted prior non-ED medical record specialty: ( ); note date ( ); which showed: ( ) Social Determinants of Health Affecting Care: Social determinants of health that will affect patient's care are: None Poor Health Literacy (Additional Time Provided in Explanation)- None Drug Abuse (Provided Counseling and Discussed Risks of Substance Abuse)- NA Alcohol Abuse (Provided Counseling and Discussed Risks of Alcohol Abuse)- NA Psychiatric Illness poorly controlled (Additional Time Provided in Explanations) Poor access to outpatient care/follow up (Provided Outpatient Resources)- NA Lack of transportation (Arranged Transport as Needed)- NA Homelessness (Provided Resources)- NA REsults: Chest x-ray shows no obvious infiltrate, Ct Head: Negative for acute hemorrhage, mass effect or midline shift White blood cell count 4.5, and hemoglobin stable at 12. Platelets are normal at 269. CBC is normal, no anemia or thrombocytopenia, leukocytosis. INR is normal at 1.0. Electrolytes are normal without significant abnormality, creatinine is 0.8. Magnesium is 2.2. AST and ALT are normal and alk phos is approximately 39 which is low. Troponin is negative at 0.002. CXR No Pleural effusion, or pneumonia. 1503: I evaluated patient in E 2. Stroke alert activated. 1604: I spoke with teleneurologist Dr. Chase, states patient is not a TNK candidate at this time. I spoke with hospitalist team B for admission. 1730: Notified by hospitalist team the patient is refusing admission. I have personally explained to the patient that choosing to sign out AGAINST MEDICAL ADVISE may result in permanent bodily harm or . The patient states she will discuss with caregiver. 1830: Patient requesting to leave against medical advice. The patient states that they are aware of the serious risks as explained, but they continue to wish to leave against medical advice. Unexpected Depature: Prior to completion of diagnostic testing and treatments the patient left the emergency department. Emergency Department nursing documentation was reviewed including triage complaint, associated symptoms, administration of medications, response to therapy and vital signs. Protocols have been initiated to attempt contact with the patient and encourage return for completion of services using the demographic information supplied at the time of triage. 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 NSR, rate 78, no STEMI, IA 196ms, QTc 441ms. ) Lab and/or radiology exams considered but not ordered:: None Interpretation Summary: Ordering Physician: Sonja Harding MD Date of Service: 12/08/24 Procedure(s): XR chest 1V portable Accession Number(s): [id number] cc: Malu Elizabeth; Junior Mcgarry MD; Sonja Harding MD~ EXAMINATION: AP chest single view TECHNIQUE: AP portable upright chest single view Date and time: December 08, 2024, 1539 hours, comparison September 16, 2024 INDICATIONS: Stroke alert today FINDINGS: Mild prominence of ventricles Accentuation of bronchovascular markings. No aspiration pneumonia. Prominent osteopenia IMPRESSION: Bronchitis pattern Dictated By: Junior Mcgarry MD Signed By: <Electronically signed by Junior Mcgarry MD in [place]> 12/08/24 1615 Ordering Physician: Sonja Harding MD Date of Service: 12/08/24 Procedure(s): CT stroke protocol Accession Number(s): [id number] cc: Raul Gibbs MD; Sonja Harding MD~ Examination: CT brain head without contrast. 2-D sagittal coronal reconstructions Date and time of exam: 12/08/2024, 3:18 p.m. COMPARISON: 07/07/2024 INDICATION: Headache evaluate for stroke CTDI: vol (mGy): 48.2 DLP: (mGycm): 949 Technique: Multiple CT axial sections of the brain have been obtained, 5 mm slice thickness. Contrast has not been administered. 2-D sagittal, coronal reconstructions have been obtained Low dose protocols were performed. One or more of the following dose reduction techniques were used; automated exposure control, adjustment of the mA and/or KV according to patient size, use of iterative reconstruction technique. Findings: No significant ventricular enlargement. Intra-axial or extra-axial hemorrhage density is not seen. No mass effect or midline shift Basal cisterns are not remarkable. Fourth ventricle is midline. Cranial vault intact. Impression: Negative for acute hemorrhage, mass effect or midline shift Dictated By: Raul Gibbs MD Signed By: <Electronically signed by Raul Gibbs MD in OV> 12/08/24 1529 Ordering Physician: Sonja Harding MD Date of Service: 12/08/24 Procedure(s): CT angio stroke protocol Accession Number(s): [id number] cc: Malu Eilzabeth; Junior Mcgarry MD; Sonja Harding MD~ EXAMINATION: CTA carotid brain angiograms with intravenous contrast 3D sagittal coronal reconstructions 3D reconstructions Date and time: December 08, 2024, 1530 hours INDICATIONS: Stroke alert today CTDI, 17.3 DLP: 440 TECHNIQUE AND FINDINGS: 2.0 mm slice thickness axial images obtained brain head and carotids post intravenous administration 75 cc Isovue-370 2D sagittal coronal reconstructions 3D reconstructions including 3D post processed angiographic imaging No significant common carotid carotid bifurcation or internal carotid artery stenoses Dominant right vertebral artery, no critical stenoses Intracranial vertebral arteries basilar artery and posterior cerebral branches fill with no large vessel occlusions Middle cerebral anterior cerebral arteries including M1 segments middle cerebral arteries fill with no large vessel occlusions IMPRESSION: No significant neck arterial stenoses No cerebral large vessel arterial occlusions or thrombus Dictated By: Junior Mcgarry MD Signed By: <Electronically signed by Junior Mcgarry MD in OV> 12/08/24 1558 Medications / Prescriptions Medications or Prescriptions considered but not ordered:: None Medication administrations:: None Consultations Consultation(s) initiated? (list below): Yes Consultation #1 (Physician, Specialty, Details): See above Diagnosis Dizziness Differential Diagnosis: benign paroxysmal positional vertigo, cerebrovascular accident and transient cerebral ischemia Most likely diagnosis given after review of the tests above:: Dizziness Admission Indicated Admission indicated?: not indicated Explain why admission is indicated or not indicated:: Admission was indicated however is signing out AMA. Admission Request Was there a request for admission?: No Disposition Plan Disposition Plan: other (specify) (AGAINST MEDICAL ADVICE ) Discharge Plan Plan Patient Disposition: Left Against Medical Advice Patient condition on transfer: Stable Prescriptions/Referrals Prescriptions/Med Rec: No Action albuterol sulfate [Ventolin HFA] 200 PUFF/INH HFA aerosol inhaler 2 puffs IH Q4H PRN (Reason: sob) Qty: 1 Patient Comments: as needed. carbamazepine [Carbatrol] 300 MG capsule, ER multiphase 12 hr 300 mg PO BID Qty: 0 zonisamide 100 MG capsule 200 mg PO HS Qty: 0 alendronate 70 mg Tablet 70 mg PO QWEEK Patient Comments: pt takes on saturdays atorvastatin 40 mg tablet 40 mg PO HS Patient Comments: TAKE ONE TABLET BY MOUTH EVERY DAY FOR CHOLESTEROL quetiapine 200 mg tablet 200 mg PO QDAY Patient Comments: TAKE 1 TABLET BY MOUTH EVERY DAY buspirone 10 mg tablet 10 mg PO QDAY Patient Comments: TAKE 1 TABLET BY MOUTH THREE TIMES A DAY omeprazole 40 mg capsule,delayed release(DR/EC) 40 mg PO AC Patient Comments: TAKE 1 CAPSULE BY MOUTH EVERY DAY BEFORE A MEAL budesonide 180 mcg/actuation aerosol powdr breath activated 2 inh inhalation BID Qty: 1 0RF montelukast 10 mg tablet 10 mg PO QDAY Qty: 30 0RF dexamethasone 6 mg tablet 6 mg PO QDAY Qty: 7 0RF ibuprofen 600 mg tablet 600 mg PO Q6H Qty: 30 0RF albuterol sulfate 90 mcg/actuation HFA aerosol inhaler 2 puff inhalation Q4H PRN (Reason: shortness of breath or wheezing) Qty: 6.7 0RF Referrals: Malu Elizabeth FNP [Primary Care Provider] - In 1 week Problem List Clinical Impression: Dizziness Patient/Caregiver Discharge Instructions Education Materials: Dizziness Fainting Ch Additional Instructions: We have discussed you are leaving AGAINST MEDICAL ADVICE. You understand that you could have a stroke in the next 48 hours that can lead to paralysis, not moving 1 side of your body, not speaking, or worsening permanent strokelike deficits to include since you are leaving the hospital without a complete workup. Alternatives include getting admitted to the hospital so that we can finish the workup. I have offered to give you medications to help you relax. But you still do not want to stay in the hospital. Please see your primary care tomorrow to see what additional medications you need to be on. Return to the emergency department for worsening symptoms, or any other concerns. Print Language: German
[2024-12-08 15:25] LABS: Basophils # (Auto) 0.0 Thou/mm3 (0.0-0.2); Basophils % (Auto) 0 % (0-2.5); Eosinophils # (Auto) 0.2 Thou/mm3 (0.0-0.5); Eosinophils % (Auto) 3 % (0-10); Hematocrit 35.2 % (36.0-46.0); Hemoglobin 12.2 g/dL (12.0-16.0); Immature Granulocytes Auto 0.01 Thou/mm3 (0.00-0.00); Lymphocytes # (Auto) 1.6 Thou/mm3 (1.0-4.8); Lymphocytes % (Auto) 36 % (10-50); Mean Corpuscular HGB Conc 34.7 g/dl (31.0-37.0); Mean Corpuscular Hemoglobin 32.2 pg (25.0-35.0); Mean Corpuscular Volume 93 fL (80-100); Monocytes # (Auto) 0.4 Thou/mm3 (0.0-0.8); Monocytes % (Auto) 8 % (0-12); Neutrophils # (Auto) 2.4 Thou/mm3 (1.8-7.7); Neutrophils % (Auto) 52 % (37-80); Nucleated Red Blood Cell # 0.00 Thou/mm3 (0.00-0.00); Nucleated Red Blood Cell % 0 /100 WBC (0); Platelet Count 269 Thou/mm3 (140-440); RDW Standard Deviation 42.3 fL (36.4-46.3); Red Blood Count 3.79 Miln/mm3 (4.00-5.20); White Blood Count 4.5 Thou/mm3 (3.6-11.0)
[2024-12-08 15:40] LABS: INR 1.0 (0.9-1.3); Partial Thromboplastin Time 25.6 Seconds (22.0-36.0); Prothrombin Time 10.5 Seconds (9.0-12.2)
[2024-12-08 15:44] LABS: Alanine Aminotransferase 13 U/L (10-49); Albumin, Serum 4.8 gm/dL (3.4-4.8); Albumin/Globulin Ratio 2.0 (1.2-2.2); Alkaline Phosphatase 39 U/L (46-116); Anion Gap 11 (7-16); Aspartate Amino Transferase 20 U/L (0-34); BUN/Creatinine Ratio 10 Ratio (12-20); Bilirubin,Total 0.2 mg/dL (0.3-1.2); Blood Urea Nitrogen 8 mg/dL (9-23); Calcium 9.6 mg/dL (8.3-10.6); Calcium (Corrected) 9.6 mg/dL (8.5-10.1); Carbon Dioxide 24.0 mMol/L (20.0-31.0); Chloride 107 mMol/L (98-107); Creatinine (Component) 0.8 mg/dL (0.6-1.3); Estimated Creatinine Clearance 51.7 mL/min (>60); Globulin 2.4 gm/dL (2.3-3.5); Glucose 100 mg/dL (74-106); Magnesium 2.2 mg/dL (1.6-2.6); Osmolality,Calculated 281 (275-295); Potassium 4.2 mMol/L (3.4-5.1); Sodium 142 mMol/L (136-145); Total Protein 7.2 gm/dL (5.7-8.2); Troponin I < 0.002 ng/mL (0.0-0.045); eGFR > 60 See Note
--- NOTE | 2024-12-08 15:58 | PD.TNEURO ---
Tele Neuro Consultation Consultation Date 12/08/24 Most Recent Vital Signs Last Vital Signs Temp 98.3 F 12/08/24 14:24 Pulse 75 12/08/24 14:24 Resp 18 12/08/24 14:24 BP 112/73 12/08/24 14:24 Pulse Ox 99 12/08/24 14:24 O2 Del Method Room Air 12/08/24 14:24 Laboratory-Coagulation Panel PT 10.5 Seconds (9.0-12.2) 12/08/24 15:07 INR 1.0 (0.9-1.3) 12/08/24 15:07 APTT 25.6 Seconds (22.0-36.0) 12/08/24 15:07 Consultation Narrative [facility] Tele[facility]urology Consult [facility] Patient Name:???Chel Fuchs Date of :???1960 Identification Number:??? Date of Service:???12/08/2024 15:04:46 Diagnosis:?R42 - Dizziness/ Vertigo/ Giddiness ?I63.89 - Cerebrovascular accident (CVA) due to other mechanism ([facility]) Impression: ?Pt is a 64 YOF with PMH of HLD, ASTHMA, GERD, HEART MURMUR, SEIZUR D/O, ANXIETY D/O who presented with dizziness. NIHSS: 0. Deferred thrombolytics. Prelim CTAs negative for LVO. Admit for TIA/STROKE vs CARDIAC vs VESTIBULAR vs TOXIC/METABOLIC/INFECTIOUS process. ? ?Monitor neuro checks/VS q4h with telemetry. ?Recommend fall precautions and seizure precautions. ?Goal SBP b/w 160-180 today, 140-160 -> 100-140 afterwards. ?Start ASA + STATIN if no contraindications. ?Cont. home AEDs. ?Get MRI BRAIN W/O and ECHO. ?Get BLOOD CX x2, COVID, UDS, ETOH, ESR/CRP, TROP, CK, TSH, B12, BNP, LACTIC ACID, LIPID PANEL, and A1C. ?Get WORKUP for TOXIC/METABOLIC/INFECTIOUS causes. ?PT/OT/ST eval. ? ?Give Lorazepam 2 mg IV PRN for seizures > 3 min or > 3 episodes in one hour. Don't give more than 6-8 mg total in 24 hour period. ?Please avoid aminophylline, theophylline, isoniazid, lindane, metronidazole, nalidixic acid, meropenem/imipenem, cefepime, TCAs, bupropion, cyclosporine, chlorambucil, tramadol, clozapine, or other drugs which can lower seizure threshold. Our recommendations are outlined below. Recommendations: ? Stroke/Telemetry Floor ? Neuro Checks (Q4) ? Bedside Swallow Eval ? DVT Prophylaxis ? IV Fluids, Normal Saline ? Head of Bed 30 Degrees ? Euglycemia and Avoid Hyperthermia (PRN Acetaminophen) Sign Out: ? Discussed with Emergency Department Provider Advanced Imaging: CTA Head and Neck Completed. LVO:No Patient is not a candidate for ANGI Metrics: Last Known Well: 12/08/2024 12:30:00 Dispatch Time: 12/08/2024 15:04:46 Arrival Time: 12/08/2024 14:11:00 Initial Response Time: 12/08/2024 15:06:32Symptoms: dizziness. Initial patient interaction: 12/08/2024 15:33:10 NIHSS Assessment Completed: 12/08/2024 15:52:36Patient is not a candidate for Thrombolytic. Thrombolytic Medical Decision: 12/08/2024 15:54:23Patient was not deemed candidate for Thrombolytic because of following reasons: Resolved symptoms . Stroke severity too mild (non-disabling) . CT Head: I personally reviewed all the CT images that were available to me and it showed: no acute changes, no ICH. Primary Provider Notified of Diagnostic Impression and Management Plan on: 12/08/2024 16:04:27 History of Present Illness: Patient was brought by EMS for symptoms of dizziness. Pt is a 64 YOF with PMH of HLD, ASTHMA, GERD, HEART MURMUR, SEIZUR D/O, ANXIETY D/O who presented with dizziness. She started having symptoms around 1230. She is poor historian and couldn't give much details about dizziness. She stated no NV, no double vision, no fall, no head/neck injury. She got flu shot yesterday. No seizure today or yesterday as per special needs child caregiver. She is on CBZ 300 bid and ZONISAMIDE 200 mg qhs. Past Medical History: ?Hyperlipidemia ?Seizures ?There is no history of Stroke Medications: No Anticoagulant use? No Antiplatelet use Reviewed EMR for current medications Allergies:? Reviewed Social History: Smoking: No Alcohol Use: No Drug Use: No Family History: There is no family history of premature cerebrovascular disease pertinent to this consultation ROS : 14 Points Review of Systems was performed and was negative except mentioned in HPI. Past Surgical History: There Is No Surgical History Contributory To Today?s Visit Examination: BP(112/73),?Pulse(75),?Blood Glucose(112) 1A: Level of Consciousness - Alert; keenly responsive?+ 0 1B: Ask Month and Age - Both Questions Right?+ 0 1C: Blink Eyes & Squeeze Hands - Performs Both Tasks?+ 0 2: Test Horizontal Extraocular Movements - Normal?+ 0 3: Test Visual [place] - No Visual Loss?+ 0 4: Test Facial Palsy (Use Grimace if Obtunded) - Normal symmetry?+ 0 5A: Test Left Arm Motor Drift - No Drift for 10 Seconds?+ 0 5B: Test Right Arm Motor Drift - No Drift for 10 Seconds?+ 0 6A: Test Left Leg Motor Drift - No Drift for 5 Seconds?+ 0 6B: Test Right Leg Motor Drift - No Drift for 5 Seconds?+ 0 7: Test Limb Ataxia (FNF/Heel-Velazco) - No Ataxia?+ 0 8: Test Sensation - Normal; No sensory loss?+ 0 9: Test Language/Aphasia - Normal; No aphasia?+ 0 10: Test Dysarthria - Normal?+ 0 11: Test Extinction/Inattention - No abnormality?+ 0 NIHSS Score:?0 NIHSS Free Text :?Age/[age]/year[age] [birth year]. She is hard of hearing. She has baseline mild cognitive issues. Pre-Morbid Modified [place] Scale: 0 Points = No symptoms at all Spoke with :?ED This consult was conducted in real time using interactive audio and video technology. Patient was informed of the technology being used for this visit and agreed to proceed. Patient located in hospital and provider located at home/office setting. Patient is being evaluated for possible acute neurologic impairment and high probability of imminent or life-threatening deterioration. I spent total of 35 minutes providing care to this patient, including time for face to face visit via telemedicine, review of medical records, imaging studies and discussion of findings with providers, the patient and/or family. Dr An Chase [facility] For Inpatient follow-up with [facility] physician please call [facility] at . As we are not an outpatient service for any post hospital discharge needs please contact the hospital for assistance. If you have any questions for the [facility] physicians or need to reconsult for clinical or diagnostic changes please contact us via [facility] at . Signature :Amelia Chase
[2024-12-08 16:00] VITALS: PULSE 78; RESP 100; RESP 18
[2024-12-08 17:54] VITALS: BP 139/80; PULSE 88; RESP 16; TEMP 36.6; O2SAT 99
--- NOTE | 2024-12-08 18:42 | PC.NURSE ---
pt pulled out IV and states I'm not staying, I'm going home. Care provider at bedside. Provider notified.
--- NOTE | 2024-12-08 18:50 | PC.NURSE ---
pt a/o, gcs 15. pt requesting to sign out AMA. provider notified. pt signed out AMA, care provider at bedside as witness. all risk explained. pt wheeled out by STEMMING MACHINE OPERATOR.
== END 2024-12-08 19:10 | disposition left against medical advice (07) ==
PROVIDERS: Emergency Provider Emergency Medicine; PCP Nurse Practitioner Family
DX: I63.89 Other cerebral infarction (principal); E78.5 Hyperlipidemia, unspecified; J45.909 Unspecified asthma, uncomplicated; R29.700 NIHSS score 0
CPT/HCPCS: 36415; 70450; 70496; 70498; 71045; 80053; 80307; 81001; 83735; 84484; 85025; 85610; 85730; 93005; 99283; A4649; Q9967